=== PATIENT | male | born 1980 | race Hispanic/Latino ===

== ENCOUNTER 2020-03-27 06:40 | Emergency (ER) | payer BC ==
[2020-03-27 07:17] LABS: #Basophils 0.1 thou/uL (0.0-0.2); #Lymphocytes 0.7 thou/uL (1.20-3.40); #Monocytes 0.8 thou/uL (0.11-0.59); #Neutrophils 14.3 thou/uL (1.40-6.50); %Basophils 0.8 % (0.0-1.0); %Eosinophils 0.1 % (0.0-10.0); %Lymphocytes 4.3 % (21.0-51.0); %Monocytes 4.7 % (0.0-10.0); %Neutrophils 90.1 % (42.0-75.0); Mean Corpuscular Hemoglobin 30.8 pg (27.0-31.0); Mean Corpuscular Volume 90.6 fL (78.0-98.0); Mean Platelet Volume 9.6 fL (7.4-10.4); Platelet Count 174 thou/uL (130-400); RBC Distribution Width 11.2 % (11.5-14.5); Red Blood Cell (RBC) Count 5.19 mill/uL (4.70-6.10); White Blood Cell (WBC) Count 15.8 thou/uL (4.8-10.8)
[2020-03-27 07:24] LABS: Bilirubin Moderate (Negative); Blood, Urine Negative (Negative); Clarity Clear (Clear); Glucose, Urine (Dipstick) 500 mg/dL (Negative); Leukocyte Negative (Negative); Nitrite Negative (Negative); Protein, Urine (Dipstick) 100 mg/dL (Neg-Trace); Urobilinogen 0.2 mg/dL (Less than 2)
[2020-03-27 07:31] LABS: ALT (SGPT) 79 U/L (8-55); AST (SGOT) 39 U/L (5-34); Albumin 4.4 g/dL (3.5-5.0); Alkaline Phosphatase 91 U/L (40-110); Anion Gap 26 mmol/L (10-20); BUN (Urea Nitrogen) 9 mg/dL (8.9-20.6); Bilirubin, Total 0.9 mg/dL (0.2-1.2); Calc. Creatinine Clearance 0 mL/min (70-130); Carbon Dioxide 12 mmol/L (22-29); Chloride 98 mmol/L (98-107); Estimated GFR-MDRD Greater than 90; Globulin 3.8 g/dL (2.4-3.5); Glucose 253 mg/dL (70-105); Lipase 926 U/L (8-78); Potassium 3.8 mmol/L (3.5-5.1); Protein, Total 8.2 g/dL (6.0-8.3); Sodium 132 mmol/L (136-145)
[2020-03-27] MEDS ORDERED: Sodium Chloride 0.9% 1,000 ML ONE ×2 (07:35→07:42)
[2020-03-27] MEDS ORDERED: Ondansetron PF 4 MG/2 ML Vial ONE (07:35)
[2020-03-27 07:38] LABS: Bacteria/HPF Rare-Few HPF (None Seen); Mucous/LPF Rare LPF (<2+); RBC/HPF None Seen HPF (0-3); Squamous Epithelial 0-3 HPF (0-3); WBC/HPF 0-3 HPF (0-3)
[2020-03-27] MEDS ORDERED: Sodium Chloride 0.9% 100 ML ONE (07:53)
[2020-03-27] MEDS ORDERED: Piperacillin/Tazobactam 4.5 GM VIAL ONE (07:53)
[2020-03-27 07:58] LABS: CO2 Tension (PvCO2) 36.1 mmHg (40.0-50.0)
[2020-03-27 07:59] LABS: Base Excess-Venous -3.9 mmol/L (-2.0 to 3.0); Bicarbonate (HCO3v) 20.8 mmol/L (22.0-28.0)
[2020-03-27 08:00] LABS: Chloride 103 mmol/L (98-107); Potassium 3.8 mmol/L (3.5-5.1); Sodium 135 mmol/L (138-145); T. Carbon Dioxide 21.9 mmol/L (22.0-28.0)
[2020-03-27 08:03] LABS: Calcium, Ionized 0.99 mmol/L (See Comments:)
[2020-03-27] MEDS ORDERED: Fentanyl 100 MCG/2 ML VIAL ONE (08:10)
[2020-03-27] MEDS ORDERED: Iopamidol 370 76% 100 ML VIAL ONE (09:00)
--- NOTE | 2020-03-27 11:01 | CT ---
CT OF THE ABDOMEN AND PELVIS WITH IV CONTRAST: INDICATION: Abdominal pain, nausea, and vomiting. FINDINGS: There is mild subsegmental volume loss involving both lower lobes. There is prominent fatty infiltration of the liver. There is prominent inflammatory stranding and edema surrounding the pancreas. There is wall thickeni ng involving the duodenum. No overt drainable fluid collection is evident. The spleen, adrenal glands, and right kidney appear within normal limits. There is a small left marlen l hypodensity. There is a normal appendix in the right lower quadrant. The bladder, rectum, and perirectal soft tis sues are unremarkable-appearing. The small bowel is of normal caliber. No acute osseous abnormality is demonstrated. IMPRESSION: 1. Findings of active pancreatitis. 2. No drainable fluid collection demonstrated. 3. Prominent fatty infiltration of the liver. POS: [facility]
== END 2020-03-27 09:12 | disposition short-term general hospital (02) ==
LOC: NAV ERS 06:40
DX: K85.90 Acute pancreatitis without necrosis or infection, unspecified (principal); E86.0 Dehydration; D72.829 Elevated white blood cell count, unspecified; F10.10 Alcohol abuse, uncomplicated; I10 Essential (primary) hypertension; E78.5 Hyperlipidemia, unspecified; R11.2 Nausea with vomiting, unspecified; N40.1 Benign prostatic hyperplasia with lower urinary tract symptoms; R33.8 Other retention of urine; Y90.9 Presence of alcohol in blood, level not specified
CPT/HCPCS: 36416; 74177; 80053; 81003; 81015; 82330; 82803; 83605; 83690; 85025; 87040; 94760; 96361; 96365; 96374; 96375; J2405; J2543; J3010; J3490; J7050; Q9967

== ENCOUNTER 2023-09-04 02:06 | Emergency (ER) | payer OTHER, SELFPAY ==
[2023-09-04] MEDS ORDERED: diphenhydrAMINE 50 MG/ML VIAL ONE (02:26)
== END 2023-09-04 04:18 ==
LOC: NAV ERS 02:06
DX: S09.90XA Unspecified injury of head, initial encounter (principal); F10.129 Alcohol abuse with intoxication, unspecified; E78.5 Hyperlipidemia, unspecified; I10 Essential (primary) hypertension; V89.2XXA Person injured in unspecified motor-vehicle accident, traffic, initial encounter
CPT/HCPCS: 70450; J1200